=== PATIENT | female | born 1995 | race Asian ===

== ENCOUNTER 2017-11-30 16:57 | Emergency (ER) | payer SELFPAY ==
[2017-11-30 17:15] VITALS: BP 105/72
--- NOTE | 2017-11-30 17:21 | UC ---
Abdominal Pain Female HPI - HPI Summary HPI Summary: n/v/d for 2 days-believes it was caused by Suschi--no fevers. no blood in stool- -was able to eat strawberries today took Immodium yesterday and has had no further stool - History of Current Complaint Chief Complaint: UCGI Stated Complaint: VOMITING Time Seen by Provider: 11/30/17 17:18 Hx Obtained From: Patient ?: No Onset/Duration: Sudden Onset, Lasting Days - 2 Timing: Constant Pain Intensity: 9 Pain Scale Used: 0-10 Numeric - nausea Location: Diffuse Radiates: No Aggravating Factor(s): Nothing Alleviating Factor(s): Nothing Associated Signs and Symptoms: Positive: Nausea, Vomiting, Diarrhea Allergies/Adverse Reactions: Allergies Allergy/AdvReac Type Severity Reaction Status Date / Time No Known Allergies Allergy Verified 11/30/17 17:15 Home Medications: Home Medications Ibuprofen 200 mg PO 11/30/17 [History] PMH/Surg Hx/FS Hx/Imm Hx Previously Healthy: Yes - Surgical History Surgical History: Yes Surgery Procedure, Year, and Place: cyst to lip removed - Social History Occupation: Student Lives: Dormitory/Roommates Alcohol Use: None Substance Use Type: None Smoking Status (MU): Never Smoked Tobacco Review of Systems Constitutional: Negative Skin: Negative Eyes: Negative ENT: Negative Respiratory: Negative Cardiovascular: Negative Gastrointestinal: Abdominal Pain, Vomiting, Diarrhea, Nausea Genitourinary: Negative Motor: Negative Neurovascular: Negative Musculoskeletal: Negative Neurological: Negative Psychological: Negative Is Patient Immunocompromised?: No All Other Systems Reviewed And Are Negative: Yes Physical Exam Triage Information Reviewed: Yes Appearance: Well-Appearing, No Pain Distress, Well-Nourished Vital Signs: Initial Vital Signs Temp 99.3 F 11/30/17 17:11 Pulse 95 11/30/17 17:11 Resp 18 11/30/17 17:11 BP 105/72 11/30/17 17:11 Pulse Ox 98 11/30/17 17:11 Vital Signs Reviewed: Yes Eye Exam: Normal Eyes: Positive: Conjunctiva Clear ENT Exam: Normal ENT: Positive: Normal ENT inspection, Hearing grossly normal, Pharynx normal. Negative: Trismus, Muffled voice, Hoarse voice Dental Exam: Normal Neck exam: Normal Neck: Positive: Supple, Nontender, No Lymphadenopathy Respiratory Exam: Normal Respiratory: Positive: Chest non-tender, No respiratory distress, No accessory muscle use Cardiovascular Exam: Normal Cardiovascular: Positive: RRR, Pulses Normal, Brisk Capillary Refill Abdominal Exam: Normal Abdomen Description: Positive: No Organomegaly, Soft. Negative: CVA Tenderness (R), CVA Tenderness (L), Distended, Guarding, McBurney's Point Tenderness Bowel Sounds: Positive: Present Musculoskeletal Exam: Normal Musculoskeletal: Positive: Strength Intact, ROM Intact, No Edema Neurological Exam: Normal Neurological: Positive: Alert, Muscle Tone Normal Psychological Exam: Normal Skin Exam: Normal Re-Evaluation - Re-Evaluation First Eval Change: Improved - taking po fluids well after zofran Abd Pain Female Course/Dx - Course Course Of Treatment: zofran advance diet from clear liquids slowly, stool sample follow with [facility] tomorrow as planned - Differential Dx/Diagnosis Provider Diagnoses: Acute nausea. vomiting, diarrhea Discharge - Sign-Out/Discharge Documenting (check all that apply): Patient Departure - Discharge Plan Condition: Stable Disposition: HOME Prescriptions: Ondansetron ODT TAB* [Zofran 4 MG Odt TAB*] 4 mg PO Q6H PRN #4 tab.odt PRN Reason: Nausea/Vomiting Patient Education Materials: Clear Liquid Diet (ED), Acute Nausea and Vomiting (ED), Acute Diarrhea (ED) Referrals: No Primary Care Phys,NOPCP [Primary Care Provider] - Additional Instructions: Follow at [facility] on Tuesday as planned-- - Billing Disposition and Condition Condition: STABLE Disposition: Home
[2017-11-30] MEDS ORDERED: Ondansetron ODT TAB* 4 MG PO ONE (17:41)
== END 2017-11-30 18:25 | disposition home or self-care (01) ==
LOC: UCEAST 16:57
DX: R11.2 Nausea with vomiting, unspecified (principal); R19.7 Diarrhea, unspecified
CPT/HCPCS: 81003; 84702; 99202; A9270-GY; G0463

== ENCOUNTER 2017-12-01 12:39 | Emergency (ER) | payer OTHER ==
[2017-12-01 14:08] LABS: ABS Basophils 0 10^3/ul (0-0.2); ABS Eosinophils 0 10^3/ul (0-0.6); ABS Lymphocytes 0.9 10^3/ul (1.0-4.8); ABS Monocytes 0.9 10^3/ul (0-0.8); ABS Neutrophils 7.1 10^3/ul (1.5-7.7); ABS Nucleated RBC 0 10^3/ul; Eosinophil % 0 % (0-6); Hematocrit 43 % (35-47); Hemoglobin 14.6 g/dl (12.0-16.0); Lymphocyte % 9.8 % (25-47); Mean Corpuscular HGB Conc 34 g/dl (31-36); Mean Corpuscular Hemoglobin 31 pg (27-31); Mean Corpuscular Volume 91 fL (80-97); Mean Platelet Volume 8.2 um3 (7.4-10.4); Nucleated Red Blood Cells % 0; Platelet Count 230 10^3/ul (150-450); Red Blood Count 4.73 10^6/ul (4.00-5.40); Red Cell Distribution Width 13 % (10.5-15); White Blood Count 8.8 10^3/ul (3.5-10.8)
[2017-12-01 14:21] LABS: EGFR Non-African American 65.4 (>60)
[2017-12-01] MEDS ORDERED: NS 0.9% 1000 ML* 1,000 ML IV ONE (17:52)
--- NOTE | 2017-12-01 18:34 | ED ---
GI/ HPI - HPI Summary HPI Summary: 22 year old Female presents to nausea vomiting diarrhea for the past 5 days. She states that she ate some old sushi on the and has been having symptoms since. Denies any blood in her stool. She admits to generalized abdominal pain. She denies any dysuria urgency frequency or hematuria. No vaginal discharge. No flank pain. She denies any fevers. She has not been on antibiotics recently. She has not had diarrhea in the past 2 days as she took some loperamide. She was seen in urgent care on placed on Zofran which has helped with the nausea. States her appetite returned today. She has no medical conditions. No previous belly surgeries. No one else is sick. - History of Current Complaint Chief Complaint: EDNauseaVomitDiarrh Time Seen by Provider: 12/01/17 17:51 Stated Complaint: WEAK/ABD PAINS Pain Intensity: 9 - Allergy/Home Medications Allergies/Adverse Reactions: Allergies Allergy/AdvReac Type Severity Reaction Status Date / Time No Known Allergies Allergy Verified 12/01/17 13:00 PMH/Surg Hx/FS Hx/Imm Hx Endocrine/Hematology History: Denies: Hx Anticoagulant Therapy Cardiovascular History: Denies: Hx Myocardial Infarction - Surgical History Surgery Procedure, Year, and Place: cyst to lip removed Infectious Disease History: No Infectious Disease History: Reports: Traveled Outside the [place] in Last 30 Days - Family History Known Family History: Negative: Diabetes - Social History Alcohol Use: None Substance Use Type: Reports: None Smoking Status (MU): Never Smoked Tobacco Review of Systems Negative: Fever Negative: Chest Pain Negative: Shortness Of Breath Positive: Abdominal Pain, Vomiting, Diarrhea, Nausea All Other Systems Reviewed And Are Negative: Yes Physical Exam Triage Information Reviewed: Yes Vital Signs On Initial Exam: Initial Vitals Temp Pulse Resp BP Pulse Ox 98.6 F 70 16 95/60 100 12/01/17 12:54 12/01/17 12:54 12/01/17 12:54 12/01/17 12:54 12/01/17 12:54 Vital Signs Reviewed: Yes Appearance: Positive: Well-Appearing Skin: Positive: Warm, Dry Head/Face: Positive: Normal Head/Face Inspection Eyes: Positive: Normal, Conjunctiva Clear ENT: Positive: Pharynx normal Respiratory/Lung Sounds: Positive: Clear to Auscultation, Breath Sounds Present Cardiovascular: Positive: Normal, RRR Abdomen Description: Positive: Nontender, Soft Bowel Sounds: Positive: Present Musculoskeletal: Positive: Normal Neurological: Positive: Normal Psychiatric: Positive: Normal Diagnostics - Vital Signs Vital Signs Temp Pulse Resp BP Pulse Ox 12/01/17 12:54 98.6 F 70 16 95/60 100 - Laboratory Lab Results: Lab Results 12/01/17 12/01/17 12/01/17 Range/Units 13:47 13:47 13:47 WBC 8.8 (3.5-10.8) 10^3/ul RBC 4.73 (4.00-5.40) 10^6/ul Hgb 14.6 (12.0-16.0) g/dl Hct 43 (35-47) % MCV 91 (80-97) fL MCH 31 (27-31) pg MCHC 34 (31-36) g/dl RDW 13 (10.5-15) % Plt Count 230 (150-450) 10^3/ul MPV 8.2 (7.4-10.4) um3 Neut % (Auto) 80.1 (38-83) % Lymph % (Auto) 9.8 L (25-47) % Chambers % (Auto) 10.0 H (0-7) % Eos % (Auto) 0 (0-6) % Baso % (Auto) 0.1 (0-2) % Absolute Neuts (auto) 7.1 (1.5-7.7) 10^3/ul Absolute Lymphs (auto) 0.9 L (1.0-4.8) 10^3/ul Absolute Monos (auto) 0.9 H (0-0.8) 10^3/ul Absolute Eos (auto) 0 (0-0.6) 10^3/ul Absolute Basos (auto) 0 (0-0.2) 10^3/ul Absolute Nucleated RBC 0 10^3/ul Nucleated RBC % 0 Sodium 131 L (135-145) mmol/L Potassium 4.2 (3.5-5.0) mmol/L Chloride 97 L (101-111) mmol/L Carbon Dioxide 26 (22-32) mmol/L Anion Gap 8 (2-11) mmol/L BUN 23 (6-24) mg/dL Creatinine 1.07 H (0.51-0.95) mg/dL Est GFR ( Amer) 79.1 (>60) Est GFR (Non-Af Amer) 65.4 (>60) BUN/Creatinine Ratio 21.5 H (8-20) Glucose 93 (70-100) mg/dL Lactic Acid 1.1 (0.5-2.0) mmol/L Calcium 9.4 (8.6-10.3) mg/dL Total Bilirubin 0.70 (0.2-1.0) mg/dL AST 25 (13-39) U/L ALT 25 (7-52) U/L Alkaline Phosphatase 70 (34-104) U/L C-Reactive Protein 15.00 H (<8.01) mg/L Total Protein 8.0 (6.4-8.9) g/dL Albumin 4.7 (3.2-5.2) g/dL Globulin 3.3 (2-4) g/dL Albumin/Globulin Ratio 1.4 (1-3) Lipase < 10 L (11.0-82.0) U/L Beta HCG, Quant < 0.60 mIU/mL Result Diagrams: 12/01/17 13:47 12/01/17 13:47 Lab Statement: Any lab studies that have been ordered have been reviewed, and results considered in the medical decision making process. Re-Evaluation - Re-Evaluation First Eval Re-Evaluation Time: 19:45 Change: Improved Comment: feeling better after fluids GIGU Course/Dx - Course Course Of Treatment: 22 year old Female presents to nausea vomiting diarrhea for the past 5 days. She states that she ate some old sushi on the and has been having symptoms since. Denies any blood in her stool. She admits to generalized abdominal pain. She denies any dysuria urgency frequency or hematuria. No vaginal discharge. No flank pain. She denies any fevers. She has not been on antibiotics recently. She has not had diarrhea in the past 2 days as she took some loperamide. She was seen in urgent care on placed on Zofran which has helped with the nausea. States her appetite returned today. She has no medical conditions. No previous belly surgeries. No one else is sick. on exam abd soft nontender. labs wbc normal. urine shows potential uti. will place on cipro. patient understand and agrees with plan. - Diagnoses Differential Diagnoses - Female: Gastroenteritis (Viral), Gastroenteritis ( Bacterial), Urinary Tract Infection Provider Diagnoses: Nausea vomiting and diarrhea, UTI (urinary tract infection) Discharge - Sign-Out/Discharge Documenting (check all that apply): Patient Departure - Discharge Plan Condition: Good Disposition: HOME Prescriptions: Ciprofloxacin TAB* [Cipro 500 MG TAB*] 500 mg PO BID #5 tab Patient Education Materials: Urinary Tract Infection in Women (ED) Referrals: No Primary Care Phys,NOPCP [Primary Care Provider] - Additional Instructions: take cipro twice a day for 3 days Can take Zofran every 6 hours as needed for nausea Drink small amounts of fluid as tolerated When able to eat follow BRAT diet: Bananas, rice, applesauce, toast Take ibuprofen or Tylenol for pain as needed every 6 hours Return to ED if develop any new or worsening symptoms - Billing Disposition and Condition Condition: GOOD Disposition: Home
[2017-12-01 19:01] LABS: Urine Appearance Clear; Urine Blood 1+ (Negative); Urine Color Yellow; Urine Ketones Negative (Negative); Urine Protein Negative (Negative); Urine Red Blood Cell Trace(0-2/hpf) (Absent); Urine Specific Gravity 1.012 (1.010-1.030); Urine Urobilinogen Negative (Negative); Urine White Blood Cell 2+(11-20/hpf) (Absent)
[2017-12-01] MEDS ORDERED: Ciprofloxacin TAB* 500 MG PO ONE (19:42)
[2017-12-01 20:32] VITALS: BP 113/69
== END 2017-12-01 20:31 | disposition home or self-care (01) ==
LOC: ED 12:39
DX: N39.0 Urinary tract infection, site not specified (principal); R11.2 Nausea with vomiting, unspecified; R19.7 Diarrhea, unspecified; R10.84 Generalized abdominal pain
CPT/HCPCS: 36415; 80053; 81003; 81015; 83605; 83690; 84702; 85025; 86140; 87086; 96360; 99282; A9270-GY

== ENCOUNTER 2017-12-03 16:19 | Emergency (ER) | payer OTHER ==
[2017-12-03 17:26] VITALS: BP 97/57
--- NOTE | 2017-12-03 18:04 | UC ---
UC General HPI - HPI Summary HPI Summary: Previous visits to UC/ER due to food poisoning about 10 hrs of sushi ingestion 5 days ago and presence of urinary incontinence , treated for UTI. Patient states she is on dose 3 of cipro for UTI. States she is not incontinent anymore. Denies dysuria or frequency but states she continues to have diarrhea about 10 times a day. She continues to hydrate with coconut water and is taking a bland diet caffeine and dairy free. She denies nausea or vomiting, fever or chills. She states the stool looks like undigested food, denies blood , mucus or melena in it. She brought a stool sample from home. She states she has cramping just before she has a BM - History of Current Complaint Chief Complaint: UCGI Stated Complaint: DIARRHEA Time Seen by Provider: 12/03/17 17:55 Hx Obtained From: Patient Hx Last Menstrual Period: [id number] Onset/Duration: Sudden Onset Onset Severity: Mild Current Severity: Mild Pain Intensity: 2 Associated Signs & Symptoms: Positive: Abdominal Pain, Diarrhea - Allergy/Home Medications Allergies/Adverse Reactions: Allergies Allergy/AdvReac Type Severity Reaction Status Date / Time No Known Allergies Allergy Verified 12/03/17 17:26 PMH/Surg Hx/FS Hx/Imm Hx Previously Healthy: Yes Other History Of: Negative For: Anticoagulant Therapy - Surgical History Surgical History: Yes Surgery Procedure, Year, and Place: cyst to lip removed - Family History Known Family History: Positive: None Negative: Diabetes - Social History Alcohol Use: None Substance Use Type: Marijuana Smoking Status (MU): Never Smoked Tobacco Review of Systems Constitutional: Negative Gastrointestinal: Abdominal Pain, Diarrhea All Other Systems Reviewed And Are Negative: Yes Physical Exam Triage Information Reviewed: Yes Appearance: Well-Appearing, No Pain Distress, Well-Nourished Vital Signs: Initial Vital Signs Temp 98.3 F 12/03/17 17:19 Pulse 71 12/03/17 17:19 Resp 16 12/03/17 17:19 BP 97/57 12/03/17 17:19 Pulse Ox 100 12/03/17 17:19 Vital Signs Reviewed: Yes Eyes: Positive: Conjunctiva Clear ENT: Positive: Hearing grossly normal, Pharynx normal Neck: Positive: Supple, Nontender, No Lymphadenopathy Respiratory: Positive: Chest non-tender, Lungs clear, Normal breath sounds, No respiratory distress Cardiovascular: Positive: RRR, No Murmur, Pulses Normal, Brisk Capillary Refill Abdomen Description: Positive: Nontender, No Organomegaly, Soft Bowel Sounds: Positive: Present Skin Exam: Normal Course/Dx - Course Course Of Treatment: continue oral hydration, probiotics, patient does not want to take any symptomatic treatment for diarrhea/cramps. F/u with [facility]. Will give a patient a call with results. - Differential Dx - Multi-Symptom Provider Diagnoses: Food poisoning. UTI Discharge - Sign-Out/Discharge Documenting (check all that apply): Patient Departure - Discharge Plan Condition: Good Disposition: HOME Patient Education Materials: Food Poisoning (ED), Urinary Tract Infection in Women (ED) Referrals: [facility],[place] [Primary Care Provider] - - Billing Disposition and Condition Condition: GOOD Disposition: Home
== END 2017-12-03 18:36 | disposition home or self-care (01) ==
LOC: UCEAST 16:19
DX: T62 Toxic effect of other noxious substances eaten as food (principal); K52.1 Toxic gastroenteritis and colitis; N39.0 Urinary tract infection, site not specified
CPT/HCPCS: 83630; 83986; 87045; 87046; 87338; 87899; 99211; G0463

== ENCOUNTER 2018-03-05 20:38 | Emergency (ER) | payer OTHER ==
[2018-03-05 20:51] VITALS: BP 103/66
[2018-03-05] MEDS ORDERED: Ketorolac INJ* 30 MG/ML 1 ML VIAL IM ONE (21:39)
--- NOTE | 2018-03-05 21:39 | UC ---
Abdominal Pain Female HPI - HPI Summary HPI Summary: having lower abdomen pain----her usual menstrual cramps--no relief with 200 mg Ibuprofen no nausea vomiting diarrhea, fevers chills - History of Current Complaint Chief Complaint: UCGeneralIllness Stated Complaint: ABD PAIN Time Seen by Provider: 03/05/18 21:33 Hx Obtained From: Patient Hx Last Menstrual Period: 03/03/18 ?: No Onset/Duration: Sudden Onset Pain Intensity: 8 Pain Scale Used: 0-10 Numeric Location: Diffuse Radiates: No Character: Cramping Aggravating Factor(s): Nothing Alleviating Factor(s): Nothing Associated Signs and Symptoms: Positive: Negative Allergies/Adverse Reactions: Allergies Allergy/AdvReac Type Severity Reaction Status Date / Time No Known Allergies Allergy Verified 03/05/18 20:42 PMH/Surg Hx/FS Hx/Imm Hx Previously Healthy: Yes Other History Of: Negative For: Anticoagulant Therapy - Surgical History Surgical History: Yes Surgery Procedure, Year, and Place: cyst to lip removed - Family History Known Family History: Positive: None Negative: Diabetes - Social History Occupation: Student Lives: With Family Alcohol Use: None Substance Use Type: None Smoking Status (MU): Never Smoked Tobacco Review of Systems All Other Systems Reviewed And Are Negative: Yes Constitutional: Positive: Negative Skin: Positive: Negative Eyes: Positive: Negative ENT: Positive: Negative Respiratory: Positive: Negative Cardiovascular: Positive: Negative Gastrointestinal: Positive: Abdominal Pain Genitourinary: Positive: Negative Motor: Positive: Negative Neurovascular: Positive: Negative Musculoskeletal: Positive: Negative Neurological: Positive: Negative Psychological: Positive: Negative Is Patient Immunocompromised?: No Physical Exam Triage Information Reviewed: Yes Appearance: Well-Appearing, No Pain Distress, Well-Nourished Vital Signs: Initial Vital Signs Temp 98.1 F 03/05/18 20:43 Pulse 64 03/05/18 20:43 Resp 16 03/05/18 20:43 BP 103/66 03/05/18 20:43 Pulse Ox 99 03/05/18 20:43 Vital Signs Reviewed: Yes Eye Exam: Normal Eyes: Positive: Conjunctiva Clear ENT Exam: Normal ENT: Positive: Normal ENT inspection, Hearing grossly normal. Negative: Muffled voice, Hoarse voice, Dental tenderness, Sinus tenderness, Uvula midline Dental Exam: Normal Neck exam: Normal Neck: Positive: Supple, Nontender Respiratory Exam: Normal Respiratory: Positive: Chest non-tender, Lungs clear, Normal breath sounds, No respiratory distress, No accessory muscle use Cardiovascular Exam: Normal Cardiovascular: Positive: RRR, No Murmur, Pulses Normal, Brisk Capillary Refill Abdominal Exam: Other Abdomen Description: Positive: No Organomegaly, Soft. Negative: CVA Tenderness (R), CVA Tenderness (L), Distended, McBurney's Point Tenderness Bowel Sounds: Positive: Present Musculoskeletal Exam: Normal Musculoskeletal: Positive: Strength Intact, ROM Intact, No Edema Neurological Exam: Normal Neurological: Positive: Alert, Muscle Tone Normal Psychological Exam: Normal Skin Exam: Normal Abd Pain Female Course/Dx - Course Course Of Treatment: nsaids, warm compress [facility] - Differential Dx/Diagnosis Provider Diagnoses: menstrual cramps Discharge - Sign-Out/Discharge Documenting (check all that apply): Patient Departure All imaging exams completed and their final reports reviewed: No Studies - Discharge Plan Condition: Stable Disposition: HOME Prescriptions: Ibuprofen TAB* [Motrin TAB* 600 MG] 600 mg PO Q6H PRN #30 tab PRN Reason: Menstrual Cramps Patient Education Materials: Dysmenorrhea (ED) Referrals: [facility] [Outside] - If Needed [facility] [Outside] - If Needed - Billing Disposition and Condition Condition: STABLE Disposition: Home - Attestation Statements Provider Attestation: I was available for consult. This patient was seen by the RAMON. The patient was not presented to, seen by, or examined by me. -Chandana
[2018-03-05] MEDS ORDERED: Naproxen TAB* 250 MG PO ONE (21:53)
[2018-03-05] MEDS ORDERED: Ibuprofen TAB* 600 MG PO ONE (22:00)
[2018-03-05] MEDS ORDERED: Ibuprofen TAB* 600 MG ONE (22:03)
== END 2018-03-05 22:05 | disposition home or self-care (01) ==
LOC: UCEAST 20:38
DX: N94.6 Dysmenorrhea, unspecified (principal)
CPT/HCPCS: 81003; 84702; 99212; A9270-GY; G0463; J1885

== ENCOUNTER 2018-03-06 00:45 | Emergency (ER) | payer OTHER ==
[2018-03-06] MEDS ORDERED: Ketorolac INJ* 60 MG/2 ML VIAL IM ONE (01:06)
[2018-03-06] MEDS ORDERED: oxyCODONE/Acetamin 5/325 MG* TAB PO ONE (01:07)
[2018-03-06] MEDS ORDERED: Metoclopramide TAB* 10 MG PO ONE (01:07)
--- NOTE | 2018-03-06 01:13 | ED ---
GI/ HPI - HPI Summary HPI Summary: Patient is a 22 y/o F w/ c/o abdominal pain onsetting this morning. She is on the third day of her menstrual cycle and relates present pain to her period. Patient reports PMHx of dysmenorrhea for the past four years. She states she has received US previously, which was negative. She has not gone to see OBGYN. Patient denies PMHx of endometriosis, radiation of pain to back, and vomiting. Nausea is endorsed. Menstrual cycles are noted to last six days typically. Patient went to [facility] today, received ibuprofen but reports no relief in Sx. She states she last took 800 mg ibuprofen two hours ago, with 200 mg a few hours before that, and another 200 mg before that. On triage, pain is rated 9/10, nothing is noted to aggravate/alleviate Sx. Home medications and allergies are reviewed. - History of Current Complaint Chief Complaint: EDAbdPain Stated Complaint: ABD PAIN Hx Obtained From: Patient Hx Last Menstrual Period: 03/03/18 Onset/Duration: Started Hours Ago - this morning, Still Present Timing: Constant, Lasting Hours - this morning Severity: Severe - 9/10 Current Severity: Severe - 9/10 Pain Intensity: 9 Associated Signs and Symptoms: Positive: Nausea, Abdominal Pain. Negative: Back Pain, Vomiting Additional Signs & Symptoms: Positive: Vaginal Bleeding - patient is on menstrual cycle Aggravating Factor(s): Nothing Alleviating Factor(s): Nothing - Allergy/Home Medications Allergies/Adverse Reactions: Allergies Allergy/AdvReac Type Severity Reaction Status Date / Time No Known Allergies Allergy Verified 03/06/18 00:51 PMH/Surg Hx/FS Hx/Imm Hx Endocrine/Hematology History: Denies: Hx Anticoagulant Therapy Cardiovascular History: Denies: Hx Myocardial Infarction GI History: Denies: Hx Ulcer - Surgical History Surgery Procedure, Year, and Place: cyst to lip removed Infectious Disease History: No Infectious Disease History: Denies: Traveled Outside the [place] in Last 30 Days - Family History Known Family History: Negative: Diabetes - Social History Alcohol Use: None Substance Use Type: Reports: None Smoking Status (MU): Never Smoked Tobacco Review of Systems Positive: Abdominal Pain, Nausea. Negative: Vomiting Positive: other - POSITIVE - VAGINAL BLEEDING Positive: Other - NEGATIVE - BACK PAIN All Other Systems Reviewed And Are Negative: Yes Physical Exam - Summary Physical Exam Summary: VITAL SIGNS: Reviewed. GENERAL: Patient is a well-developed and nourished female who is lying comfortable in the stretcher. Patient is not in any acute respiratory distress. HEAD AND FACE: No signs of trauma. No ecchymosis, hematomas or skull depressions. No sinus tenderness. EYES: PERRLA, EOMI x 2, No injected conjunctiva, no nystagmus. EARS: Hearing grossly intact. Ear canals and tympanic membranes are within normal limits. MOUTH: Oropharynx within normal limits. NECK: Supple, trachea is midline, no adenopathy, no JVD, no carotid bruit, no c- spine tenderness, neck with full ROM. CHEST: Symmetric, no tenderness at palpation LUNGS: Clear to auscultation bilaterally. No wheezing or crackles. CVS: Regular rate and rhythm, S1 and S2 present, no murmurs or gallops appreciated. ABDOMEN: Soft, non-tender. No signs of distention. No rebound no guarding, and no masses palpated. Bowel sounds are normal. EXTREMITIES: FROM in all major joints, no edema, no cyanosis or clubbing. NEURO: Alert and oriented x 3. No acute neurological deficits. Speech is normal and follows commands. SKIN: Dry and warm Triage Information Reviewed: Yes Vital Signs On Initial Exam: Initial Vitals Temp Pulse Resp BP Pulse Ox 97.5 F 71 18 103/65 97 03/06/18 00:48 03/06/18 00:48 03/06/18 00:48 03/06/18 00:48 03/06/18 00:48 Vital Signs Reviewed: Yes Diagnostics - Vital Signs Vital Signs Temp Pulse Resp BP Pulse Ox 03/06/18 00:48 97.5 F 71 18 103/65 97 - Laboratory Lab Statement: Any lab studies that have been ordered have been reviewed, and results considered in the medical decision making process. Re-Evaluation - Re-Evaluation First Eval Re-Evaluation Time: 01:56 Comment: Patient will be discharged to home and is instructed to follow up with OBGYN. Patient is agreeable with this plan. GIGU Course/Dx - Course Course Of Treatment: Patient is a 22 y/o F w/ c/o abdominal pain onsetting this morning. She is on the third day of her menstrual cycle and relates present pain to her period. Patient reports PMHx of dysmenorrhea for the past four years. She states she has received US previously, which was negative. She has not gone to see OBGYN. Patient denies PMHx of endometriosis, radiation of pain to back, and vomiting. Nausea is endorsed. Menstrual cycles are noted to last six days typically. Patient went to [facility] today, received ibuprofen but reports no relief in Sx. She states she last took 800 mg ibuprofen two hours ago, with 200 mg a few hours before that, and another 200 mg before that. Physical exam is unremarkable. During ED course, patient received Percocet 5/ 325 1 tab PO ONCE, Reglan 10 mg PO ONCE, and toradol 60 mg IM ED ONCE ONE. Patient will be discharged to home and is instructed to follow up with OBGYN. Patient is agreeable with this plan. - Diagnoses Provider Diagnoses: Dysmenorrhea Discharge - Sign-Out/Discharge Documenting (check all that apply): Patient Departure - discharge - Discharge Plan Condition: Stable Disposition: HOME Patient Education Materials: Dysmenorrhea (ED) Referrals: Andreea Jean MD [Medical Doctor] - 2 Days Additional Instructions: RETURN TO THE EMERGENCY DEPARTMENT FOR CHANGING OR WORSENING SYMPTOMS. FOLLOW UP WITH OBGYN IN 1-2 DAYS. - Attestation Statements Document Initiated by Scribe: Yes Documenting Scribe: INDIA BENAVIDEZ Provider For Whom Scribe is Documenting (Include Credential): WELLINGTON LYNCH MD Scribe Attestation: INDIA Patiño , scribed for WELLINGTON LYNCH MD on 03/06/18 at 0211.
[2018-03-06 02:47] VITALS: BP 106/72
== END 2018-03-06 02:45 | disposition home or self-care (01) ==
LOC: ED 00:45
DX: N94.6 Dysmenorrhea, unspecified (principal)
CPT/HCPCS: 96374; 99283; A9270-GY; J1885

== ENCOUNTER 2018-03-08 11:10 | Emergency (ER) | payer OTHER ==
[2018-03-08] MEDS ORDERED: Sodium Phosphate ADULT ENEMA* 118 ml bottle PR ONE (12:22)
--- NOTE | 2018-03-08 12:44 | UC ---
Abdominal Pain Female HPI - HPI Summary HPI Summary: PATIENT PRESENTS WITH DIFFUSE, ACHING ABDOMINAL PAIN. WAS SEEN HERE IN THE UC 03/05/18 AND IN THE [facility] ON 03/06/18 AND 03/07/18. INITIALLY DIAGNOSED WITH MENSTRUAL CRAMPING AND GIVEN IBUPROFEN. DUE TO PERSISTENT PAIN PATIENT WENT TO ED AND EVENTUALLY HAD CT ABDOMEN/PELVIS, PELVIC ULTRASOUND AND APPENDIX ULTRASOUND DONE YESTERDAY. PT WAS FOUND TO HAVE A LOT OF STOOL IN THE COLON AND WAS PRESCRIBED MIRALAX TO BE TAKEN 3 TIMES DAILY. SHE HAS TAKEN IT TWICE BUT IS STILL COMPLAINING OF FEELING QUITE CONSTIPATED. SHE THINKS THE NARCOTIC MEDICATION SHE RECEIVED IN THE HOSPITAL IS MAKING THINGS WORSE. SHE REPORTS HAVING A SMALL BM TODAY BUT IS HERE LOOKING FOR A CLEAN OUT. LAST DOSE OF IBUPROFEN WAS YESTERDAY. - History of Current Complaint Chief Complaint: UCGI Stated Complaint: CONSTIPATION Time Seen by Provider: 03/08/18 11:48 Hx Obtained From: Patient Hx Last Menstrual Period: 03/03/18 Onset/Duration: Gradual Onset, Lasting Days, Still Present Timing: Constant Severity Initially: Moderate Severity Currently: Moderate Pain Intensity: 10 Pain Scale Used: 0-10 Numeric Location: Diffuse Radiates: No Character: Aching Aggravating Factor(s): Nothing Alleviating Factor(s): Nothing Associated Signs and Symptoms: Positive: Constipation. Negative: Fever, Back Pain, Blood in Stool, Urinary Symptoms, Nausea, Vomiting Allergies/Adverse Reactions: Allergies Allergy/AdvReac Type Severity Reaction Status Date / Time No Known Allergies Allergy Verified 03/08/18 11:26 PMH/Surg Hx/FS Hx/Imm Hx Previously Healthy: Yes Other History Of: Negative For: Anticoagulant Therapy - Surgical History Surgical History: Yes Surgery Procedure, Year, and Place: cyst to lip removed - Family History Known Family History: Positive: None Negative: Diabetes - Social History Alcohol Use: None Substance Use Type: None Smoking Status (MU): Never Smoked Tobacco Review of Systems All Other Systems Reviewed And Are Negative: Yes Constitutional: Positive: Negative ENT: Positive: Negative Respiratory: Positive: Negative Cardiovascular: Positive: Negative Gastrointestinal: Positive: Abdominal Pain, Other - CONSTIPATION Genitourinary: Positive: Negative Physical Exam Triage Information Reviewed: Yes Appearance: Well-Appearing, No Pain Distress - PT SITTING COMFORTABLY ON EXAM TABLE, Well-Nourished Vital Signs: Initial Vital Signs Temp 98.0 F 03/08/18 11:17 Pulse 64 03/08/18 11:17 Resp 18 03/08/18 11:17 BP 00/00 03/08/18 11:17 Pulse Ox 99 03/08/18 11:17 Vital Signs Reviewed: Yes Eyes: Positive: Conjunctiva Clear ENT: Positive: Hearing grossly normal Neck: Positive: Supple Respiratory: Positive: No respiratory distress, No accessory muscle use Cardiovascular: Positive: Pulses Normal Abdomen Description: Positive: Soft, Other: - MILDLY TENDER DIFFUSELY. NO REBOUND OR RIGIDITY. Negative: Distended, Guarding Bowel Sounds: Positive: Present Musculoskeletal: Positive: No Edema Neurological: Positive: Alert Psychological: Positive: Age Appropriate Behavior Skin: Negative: Rashes Re-Evaluation - Re-Evaluation First Eval Re-Evaluation Time: 13:45 - PT MOVED HER BOWELS AFTER A FLEETS ENEMA AND FEELS BETTER. READY FOR D/C Change: Improved Abd Pain Female Course/Dx - Differential Dx/Diagnosis Provider Diagnoses: CONSTIPATION Discharge - Sign-Out/Discharge Documenting (check all that apply): Patient Departure All imaging exams completed and their final reports reviewed: No Studies - Discharge Plan Condition: Stable Disposition: HOME Patient Education Materials: Constipation (ED) Referrals: Count Includes [facility] [Provider Group] - If Needed Additional Instructions: YOU MOVED YOUR BOWELS AFTER RECEIVING A FLEETS ENEMA TODAY IN THE URGENT CARE. YOU SHOULD CONTINUE TO HAVE BOWEL MOVEMENTS THE STOOL MOVES DOWN YOUR COLON. OKAY TO CONTINUE TAKING MIRALAX FOR THE NEXT FEW DAYS BUT BE ADVISED THIS MAY GIVE YOU DIARRHEA. BE SURE TO STAY VERY WELL-HYDRATED. GO TO THE ED WITHOUT FAIL IF YOU HAVE BLOOD PER RECTUM, INCREASED PAIN OR ANY OTHER CONCERNING SYMPTOMS. - Billing Disposition and Condition Condition: STABLE Disposition: Home
[2018-03-08 14:06] VITALS: BP 102/58
== END 2018-03-08 14:06 | disposition home or self-care (01) ==
LOC: UCEAST 11:10
DX: K59.00 Constipation, unspecified (principal)
CPT/HCPCS: 99212; A9270-GY; G0463